=== PATIENT | female | born 1995 | race African-American/Black ===

== ENCOUNTER 2017-06-29 13:36 | Emergency (ER) | payer BC ==
[2017-06-29 13:41] VITALS: BP 155/98; PULSE 103; TEMP 98.1; BMI 39.9
--- NOTE | 2017-06-29 13:55 | PDOC ---
History of Present Illness - General Chief Complaint: Injury Stated Complaint: ANKLE INJURY Time Seen by Provider: 06/29/17 13:42 - History of Present Illness Initial Comments: 06/29/17 13:54 CHIEF COMPLAINT: ankle pain HISTORY OF PRESENT ILLNESS: 21 yo obese F with no significant PMH presents to [facility] with pain and swelling to left ankle s/p injury prior to arrival. Patient reports she was stepping out of a vehicle when her foot got stuck in a pothole and twisted. She reports hearing a "pop" and immediate pain to ankle. She has not taken any medications for the pain. Patient reports LMP 3 days ago and denies any chance of . PAST MEDICAL HISTORY: Denies past medical history FAMILY HISTORY: Denies SOCIAL HISTORY: Denies tobacco, alcohol, illicit drug use. SURGICAL HISTORY: Denies ALLERGIES: No known drug allergies REVIEW OF SYSTEMS General/Constitutional: Denies weakness HEENT: Denies change in vision. Denies ear pain or discharge. Denies sore throat. Cardiovascular: Denies shortness of breath, palpitations Respiratory: Denies cough, wheezing. Gastrointestinal: Denies nausea, vomiting, diarrhea. Musculoskeletal: R ankle swelling and pain. PHYSICAL EXAM General Appearance: Well-appearing, appropriately dressed. No apparent distress. HEENT: EOMI, PERRLA. No conjunctival pallor. No photophobia, scleral icterus. Respiratory/Chest: Lungs CTAB. Cardiovascular: RRR. S1, S2. Gastrointestinal/Abdominal: Normal bowel sounds. Abdomen soft, non-distended. No tenderness or rebound tenderness. No organomegaly, pulsatile mass, guarding , hernia, hepatomegaly, splenomegaly. Musculoskeletal/Extremities: Swelling to R lateral malleolus with tenderness. No tenderness to base of 5th metatarsal. FROM of all other extremities, normal capillary refill. Integumentary: Appropriate color, dry, warm. No cyanosis, erythema, jaundice or rash Neurologic: chief meter reader II-XII intact. Fully oriented, alert. Appropriate mood/affect. Motor strength 5/5. No appreciable EOM palsy, facial droop or sensory deficit. 06/29/17 14:09 Past History - Past Medical History Allergies/Adverse Reactions: Allergies Allergy/AdvReac Type Severity Reaction Status Date / Time No Known Allergies Allergy Verified 06/29/17 13:41 Home Medications: Ambulatory Orders No Home Medications 0 dose .ROUTE UTDICT 01/17/12 Naproxen 500 mg PO BID #20 tablet 06/29/17 COPD: No DVT: No - Suicide/Smoking/Psychosocial Hx Smoking Status: No Smoking History: Never smoked Number of Cigarettes Smoked Daily: 0 Hx Alcohol Use: No Drug/Substance Use Hx: No Substance Use Type: None *Physical Exam - Vital Signs Last Vital Signs Temp Pulse Resp BP Pulse Ox 98.1 F 103 H 20 155/98 97 06/29/17 13:37 06/29/17 13:37 06/29/17 13:37 06/29/17 13:37 06/29/17 13:37 Medical Decision Making - Medical Decision Making 06/29/17 14:17 21 yo obese F with no significant PMH presents to fast track with pain and swelling to left ankle s/p injury prior to arrival. -Toradol IM -R ankle/foot x-ray X-ray negative. -Crutches, felix bandage, NSAIDS Advised patient to take medication as prescribed and follow up . Advised patient of signs and symptoms for return to ED. Patient verbalized understanding and agrees to plan. *DC/Admit/Observation/Transfer Diagnosis at time of Disposition: Ankle sprain Qualifiers: Encounter type: initial encounter Involved ligament of ankle: unspecified ligament Laterality: right Qualified Code(s): S93.401A - Sprain of unspecified ligament of right ankle, initial encounter - Discharge Dispostion Disposition: HOME Condition at time of disposition: Stable Admit: No - Prescriptions Prescriptions: Naproxen 500 mg PO BID #20 tablet - Referrals Referrals: Anthony Rodriguez MD [Primary Care Provider] - Gadiel Baez MD [Staff Physician] - - Patient Instructions Printed Discharge Instructions: DI for Ankle Sprain, How To Perform RICE (Rest , Ice, Compress, Elevate) Additional Instructions: Please take medication as prescribed and follow RICE (rest, ice, compress, elevate) instructions provided. As discussed, if your symptoms do not improve in 5-7 days, please follow up with an orthopedics for further evaluation and a possible MRI or physical therapy. If you experience any loss of sensation to your extremities, any swelling or increased pain to your leg, please return to the ER. - Post Discharge Activity
[2017-06-29] MEDS ORDERED: KETOROLAC TROMETHAMINE 60 MG/2 ML VIAL IM ONE (13:58)
[2017-06-29] MEDS ORDERED: KETOROLAC TROMETHAMINE 60 MG/2 ML VIAL ONE (14:01)
== END 2017-06-29 14:48 | disposition home or self-care (01) ==
LOC: JERFT 13:36
PROC: 3E0233Z Introduction of Anti-inflammatory into Muscle, Percutaneous Approach (ICD-10-PCS; principal; 2017-06-29)
DX: S93.401A Sprain of unspecified ligament of right ankle, initial encounter (principal); V48.4XXA Person boarding or alighting a car injured in noncollision transport accident, initial encounter; X50.1XXA Overexertion from prolonged static or awkward postures, initial encounter; Y93.89 Activity, other specified; Y92.410 Unspecified street and highway as the place of occurrence of the external cause; Y99.8 Other external cause status
CPT/HCPCS: 73610-TC-RT; 73630-TC-RT; 99281-25

== ENCOUNTER 2020-12-17 18:42 | Emergency (ER) | payer BC ==
[2020-12-17 18:57] VITALS: BP 127/85; PULSE 97; TEMP 98.3; BMI 51.5
[2020-12-17] MEDS ORDERED: predniSONE 20 MG TABLET (UD) PO ONE (19:16)
[2020-12-17] MEDS ORDERED: ALBUTEROL SO4 2.5/IPRATROPIUM 0.5 INH SOL 3 ML VIAL.NEB. NEB ONE ×2 (19:16→19:19)
[2020-12-17] MEDS ORDERED: predniSONE 20 MG TABLET (UD) ONE (19:19)
[2020-12-19 11:07] LABS: SARS-CoV-2 NAA Not Detected (Not Detected)
== END 2020-12-17 20:21 | disposition home or self-care (01) ==
LOC: FER 18:42
PROC: 3E0F7GC Introduction of Other Therapeutic Substance into Respiratory Tract, Via Natural or Artificial Opening (ICD-10-PCS; principal; 2020-12-17)
DX: J45.21 Mild intermittent asthma with (acute) exacerbation (principal)
CPT/HCPCS: 71046-TC-FY; 87804; 87807; 99284-25; C9803; U0003; U0005

== ENCOUNTER 2021-04-06 11:10 | Emergency (ER) | payer OTHER ==
[2021-04-06 11:31] VITALS: BP 133/81; PULSE 97; TEMP 98.3; BMI 51.5
[2021-04-06] MEDS ORDERED: IBUPROFEN 600 MG TABLET (FP) PO ONE ×2 (13:27→13:29)
== END 2021-04-06 13:45 | disposition home or self-care (01) ==
LOC: FER 11:10
DX: S93.402A Sprain of unspecified ligament of left ankle, initial encounter (principal)
CPT/HCPCS: 73610-TC-LT-FY; 99284-25